=== PATIENT | male | born 1935 | race Caucasian/White ===

== ENCOUNTER 2018-03-01 11:27 | Day surgery (SDC) | payer MEDICARE ==
[~2018-03-01] VITALS: Ht 182.9 cm; Wt 85.8 kg
[2018-03-01] VITALS (10 sets, daily range): BP systolic 108–136; BP diastolic 55–116
[2018-03-01] MEDS ORDERED: LORazepam 0.5 MG tablet PO PRN (11:50)
[2018-03-01] MEDS ORDERED: diphenhydrAMINE 25mg capsule PO PRN (11:50)
[2018-03-01] MEDS ORDERED: WARF2.5T PO (12:35)
[2018-03-01] MEDS ORDERED: LEVO50TA8 PO (12:35)
[2018-03-01] MEDS ORDERED: ASCO500C15 PO (12:35)
[2018-03-01] MEDS ORDERED: CYAN250010 (12:35)
[2018-03-01] MEDS ORDERED: CHOL50004 PO (12:35)
[2018-03-01] MEDS ORDERED: iohexol 350MG/ML 100ml bottle IV ONE (14:15)
[2018-03-01] MEDS ORDERED: LIDOcaine 1% (10mg/ml)w/preservative injection 20ml MDV ONE (14:16)
[2018-03-01] MEDS ORDERED: midazolam 2 mg/2 ml injection ONE (14:37)
[2018-03-01] MEDS ORDERED: fentaNYL/PF 50MCG/1 ML 2ML syringe ONE (14:37)
[2018-03-01] MEDS ORDERED: ondansetron/PF 4mg/2ml inj IV PRN (16:05)
[2018-03-01] MEDS ORDERED: HYDROcodone/acetaminophen 5mg/325mg tablet PO PRN (16:05)
[2018-03-01] MEDS ORDERED: normal saline 1000ml 1,000 ML IV SCH (16:05)
[2018-03-01] MEDS ORDERED: OXAZEpam 15mg capsule PO PRN (16:10)
[2018-03-01] MEDS ORDERED: proCHLORperazine 10 MG/2 ml inj IV PRN (16:10)
[2018-03-01] MEDS ORDERED: nitroGLYCERIN 0.4mg SUBLingual tab SL PRN (16:10)
[2018-03-01] MEDS ORDERED: HYDROcodone/acetaminophen 10/325mg tab PO PRN (16:10)
== END 2018-03-01 18:50 | disposition home or self-care (01) ==
LOC: SSTAY O 11:27 → EDSEX 15:30 → SSTAY O 18:50
PROVIDERS: ATTEND Internal Medicine Interventional Cardiology
DX: I25.10 Atherosclerotic heart disease of native coronary artery without angina pectoris (principal); I35.0 Nonrheumatic aortic (valve) stenosis; I48.0 Paroxysmal atrial fibrillation; E03.9 Hypothyroidism, unspecified; Z79.899 Other long term (current) drug therapy; Z87.891 Personal history of nicotine dependence
CPT/HCPCS: 93005; 93454; 99152; A6257; C1769; J1644; J2001; J2250; J3010; Q0163; Q9967; A4620